=== PATIENT | male | born 1955 | race Two or more races ===

== ENCOUNTER 2020-08-29 23:37 | Emergency (ER) | payer MEDICARE, MEDICAID ==
[~2020-08-29] VITALS: Ht 165.1 cm; Wt 81.6 kg
[2020-08-30 03:45] VITALS: BP 170/107
[2020-08-30] MEDS ORDERED: ONDANSETRON ODT 4 MG TAB PO ONE (03:45)
[2020-08-30] MEDS ORDERED: ACETAMINOPHEN/CODEINE#3 (300/30mg) TAB PO ONE (03:45)
[2020-08-30] MEDS ORDERED: cloNIDine HCL 0.1 MG TAB ONE (03:46)
== END 2020-08-30 04:56 | disposition home or self-care (01) ==
LOC: ER 23:37
DX: M26.601 Right temporomandibular joint disorder, unspecified (principal); R59.1 Generalized enlarged lymph nodes; R03.0 Elevated blood-pressure reading, without diagnosis of hypertension; E11.9 Type 2 diabetes mellitus without complications; I10 Essential (primary) hypertension
CPT/HCPCS: 70486; 72125; 99285; Q0162